=== PATIENT | male | born 1940 | race Caucasian/White ===

== ENCOUNTER 2020-12-22 06:42 | Day surgery (SDC) | payer MEDICARE, OTHER ==
[~2020-12-22] VITALS: Ht 375.9 cm; Wt 68.2 kg
[2020-12-22 07:08] LABS: BASOPHILS 0.6 % (0-2); EOSINOPHILS 4.3 % (0-7); HEMATOCRIT 41.6 % (42.0-54.0); HEMOGLOBIN 13.7 g/dL (13.5-17.5); IMMATURE GRANULOCYTES 0.2 % (0-5); LYMPHOCYTE ABS# 1.74 10x3/uL (1.32-3.57); MCH 29.3 pg (26.0-34.0); MCHC 32.9 g/dL (31.0-37.0); MCV 88.9 fL (80.0-100.0); MEAN PLATELET VOLUME 9.8 fL (7.4-10.4); MONOCYTES 9.8 % (2-11); NEUTROPHIL ABS# 2.62 10x3/uL (1.78-5.38); NEUTROPHILS 51.1 % (40-80); PLATELET COUNT 147 10x3/uL (130-400); RBC 4.68 10x6/uL (4.20-6.10); RDW 13.2 % (11.5-14.5); WBC 5.1 10x3/uL (4.8-10.8)
[2020-12-22 07:16] LABS: ANION GAP 14.2 mmol/L (8-16); CALCIUM 9.6 mg/dL (8.5-10.1); POTASSIUM - SERUM 4.2 mmol/L (3.5-5.1)
[2020-12-22] MEDS ORDERED: CRESTOR20 MG PO (08:04)
[2020-12-22] MEDS ORDERED: TRELEGY ELLIPT1 EACH INH (08:04)
[2020-12-22] MEDS ORDERED: PROTONIX40 MG PO (08:05)
[2020-12-22] MEDS ORDERED: CARDURA1 MG PO (08:05)
[2020-12-22] MEDS ORDERED: NORVASC10 MG PO (08:06)
[2020-12-22] MEDS ORDERED: ASPIRIN EC81 MG PO (08:09)
[2020-12-22] MEDS ORDERED: ZETIA10 MG PO (08:10)
[2020-12-22] MEDS ORDERED: HYDROCODON-ACE1 EA10 PO (08:10)
[2020-12-22] MEDS ORDERED: AMBIEN10 MG PO (08:12)
[2020-12-22] MEDS ORDERED: CO Q-10200 MG PO (08:12)
[2020-12-22] MEDS ORDERED: PROBIOTIC BLEN1 EACH PO (08:13)
[2020-12-22] MEDS ORDERED: MIRALAX17 GM PO (08:14)
[2020-12-22] MEDS ORDERED: FISH OIL 1,0001 CA1 PO (08:14)
[2020-12-22] MEDS ORDERED: REVATIO20 MG PO (08:15)
[2020-12-22 08:27] VITALS: BP 149/79; Ht 375.9 cm; Wt 68.2 kg
--- NOTE | 2020-12-22 09:30 | NUR ---
DR ARECHIGA AT BEDSIDE. 1000 DC TEACHING TO PT AND . VERBALIZED UNDERSTANDING. PIV DC'D, CATHETER INTACT, HELPING PT TO DRESS. ORDERS FAXED TO [facility] CNC SERVICE TECHNICIAN FOR FUTURE TESTS. F/U APPT SCHEDULED FOR GI OFFICE. 1023 PT DC'D VIA WC BY THIS NURSE TO POV WITH BELONGINGS AND DC PACKET. DRIVING.
--- NOTE | 2020-12-22 18:57 | OP ---
PATIENT NAME: CHARLY MELENDEZ MEDICAL RECORD: [id number] LOCATION:[facility] ADMISSION DATE: SURGEON: PERCY ARECHIGA DO DATE OF OPERATION: 12/22/2020 PROCEDURE: EGD with biopsies. INDICATION FOR PROCEDURE: Abdominal pain, dysphagia, GERD, productive cough, loss of appetite, unintentional weight loss, abnormal barium swallow. SCOPE: Olympus video gastroscope. MEDICATIONS: Propofol 220 mg IV per anesthesia. ESTIMATED BLOOD LOSS: Minimal. COMPLICATIONS: None. FINDINGS: Informed consent was given. The patient was made comfortable with the above medications. After reaching an adequate level of sedation by slow IV push, the patient was placed on his left side. The endoscope was advanced under direct visualization through the mouth to the second portion of the duodenum with ease. In the esophagus, there was significant dilation of the proximal and mid esophagus. As the endoscope reached the distal esophagus and GE junction, there was evidence of a prior Jose Manuel fundoplication. There was evidence of LA class A reflux-induced esophagitis involving the Z-line with no ulcerations present. At the surgical site, there was a side pocket, which appears to be some of the fundoplication tissue itself, which has slipped above the diaphragmatic hiatus and this created a pocket that almost appears consistent with a paraesophageal hernia. Cold forceps biopsies were taken from the mid esophagus to rule out the presence of eosinophils and biopsies were taken at the Z-line regarding the abnormal esophagram findings. There were no areas consistent with abnormal tissue, which were suspicious for malignancy endoscopically. The endoscope was advanced beyond the GE junction into the stomach and retroflexed to view the cardia and fundus. Again, as seen from above, there was evidence of a prior surgery, but gastric folds are sliding up above the diaphragmatic hiatus consistent with a hiatal hernia. The fundus and body of the stomach appeared normal. In the antrum and prepyloric region, there was some erythema and granularity consistent with mild chronic gastritis changes. Cold forceps biopsies were taken from the antrum and incisura to submit for histopathology and to rule out the presence of H. pylori. The endoscope was advanced beyond the pylorus into the duodenum, which appeared normal to the second portion. The endoscope was then withdrawn from the patient. The patient tolerated the procedure well and there were no complications. IMPRESSIONS: 1. Dilated esophagus with evidence of a prior Jose Manuel fundoplication involving the cardia and gastroesophageal junction. By appearances, the fundoplication tissue has slipped above the diaphragmatic hiatus and has created a side pocket at the gastroesophageal junction. There was some food debris and fluid pooling in this side pocket. What I am unsure about is the relation of this prior surgery involving the gastroesophageal junction to the dilated esophagus. Some of the appearances almost looked consistent with pulsion diverticulum. I do believe that the patient has some motility issues, which are also likely OPERATIVE REPORT [id number] CHARLY MELENDEZ contributing to this finding. 2. Mild chronic gastritis changes involving the antrum and prepyloric region. PLAN AND RECOMMENDATIONS: 1. Discharge home when recovery parameters are met. 2. Follow up biopsy specimen results. 3. GERD diet and reflux precautions. 4. Small meals with food being chewed fully prior to swallowing. Recommend watching solids down with liquids. 5. Recommend revisiting with Dr. Bradley regarding the endoscopic findings and whether or not any revision needs considered based on symptoms in light of endoscopic findings. 6. Attempt esophageal manometry to evaluate physiology of the esophagus for adequate motility. It is possible that this may not be able to be completed safely due to the anatomical changes related to the past surgery at the gastroesophageal junction. 7. Modified barium swallow with speech therapy regarding the oropharyngeal dysphagia. 8. Follow up in GI clinic in 6 to 8 weeks. TRANSINT:[id number] Voice Confirmation ID: [id number] DOCUMENT ID: [id number] PERCY ARECHIGA DO at 1857 CC: [id number] DICTATION DATE: 12/22/20918 BULB BRANDER: 12/22/20 135[address] [facility] 12/22/20 [facility] [address] [place] [address]
== END 2020-12-22 10:23 | disposition home or self-care (01) ==
LOC: D.OPS 06:42
PROVIDERS: Anesthesiology; ATTEND Internal Medicine Gastroenterology
DX: R10.9 Unspecified abdominal pain (principal); R13.10 Dysphagia, unspecified; R05 Cough; R63.0 Anorexia; R63.4 Abnormal weight loss; R93.3 Abnormal findings on diagnostic imaging of other parts of digestive tract; K21.00 Gastro-esophageal reflux disease with esophagitis, without bleeding; K29.70 Gastritis, unspecified, without bleeding

== ENCOUNTER 2021-01-07 10:22 | Outpatient (CLI) | payer MEDICARE, OTHER ==
[~2021-01-07 10:22] MED LIST: AMBIEN10 MG PO; ASPIRIN EC81 MG PO; CARDURA1 MG PO; CO Q-10200 MG PO; CRESTOR20 MG PO; FISH OIL 1,0001 CA1 PO; HYDROCODON-ACE1 EA10 PO; MIRALAX17 GM PO; NORVASC10 MG PO; PROBIOTIC BLEN1 EACH PO; PROTONIX40 MG PO; REVATIO20 MG PO; TRELEGY ELLIPT1 EACH INH; ZETIA10 MG PO
== END 2021-01-07 12:05 | disposition home or self-care (01) ==
LOC: D.OPS 10:22
PROVIDERS: ATTEND Internal Medicine Gastroenterology
DX: R13.10 Dysphagia, unspecified (principal); R10.33 Periumbilical pain; K21.9 Gastro-esophageal reflux disease without esophagitis; R05 Cough; R63.0 Anorexia; R63.4 Abnormal weight loss; R93.3 Abnormal findings on diagnostic imaging of other parts of digestive tract

== ENCOUNTER → 2021-01-12 12:37 | Outpatient (CLI) | payer MEDICARE, OTHER | END | disposition home or self-care (01) | LOC: D.RAD 12:37 | PROVIDERS: ATTEND Internal Medicine Gastroenterology | DX: R13.10 Dysphagia, unspecified (principal); R10.33 Periumbilical pain; K21.9 Gastro-esophageal reflux disease without esophagitis; R05 Cough; R63.0 Anorexia; R63.4 Abnormal weight loss; R93.3 Abnormal findings on diagnostic imaging of other parts of digestive tract ==